=== PATIENT | female | born 1970 | race Caucasian/White ===

== ENCOUNTER → 2017-07-15 12:42 | Outpatient (CLI) | payer MEDICAID ==
[2015-09-15 10:04] VITALS: BMI 28.9
[~2017-07-15 12:42] MED LIST: AMBIEN5 MG PO; ATIVAN0.5 MG PO; BAYER CHEWABLE81 MG PO; BENICAR HCT 40-1 TA1 PO; BLACK COHOSH PO; BYSTOLIC20 MG PO; CALAN SR180 MG PO; CO Q-1030 MG PO; COREG25 MG PO; CRESTOR20 MG PO; CYMBALTA60 MG PO; HYDRALAZINE HCL25 MG PO; HYDROCODONE-APA1 TAB PO; HYZAAR 100-25 T1 TAB PO; K-DUR20 MEQ PO; MULTIPLE VITAMI1 TA1 PO; NIFEDICAL30 MG/BOTT PO; PLAVIX75 MG PO; PRAVACHOL20 MG PO; REQUIP0.5 MG PO; XANAX0.25 MG PO; ZANTAC150 MG PO
== END | disposition home or self-care (01) ==
LOC: D.MRI 12:42
DX: R22.9 Localized swelling, mass and lump, unspecified (principal); M54.12 Radiculopathy, cervical region

== ENCOUNTER 2018-06-22 08:00 | Outpatient (CLI) | payer MEDICAID ==
[2015-09-15 10:04] VITALS: BMI 28.9
== END 2018-06-22 09:00 | disposition home or self-care (01) ==
LOC: D.MAMMO 08:00
PROVIDERS: ATTEND Family Medicine
DX: Z12.31 Encounter for screening mammogram for malignant neoplasm of breast (principal)